=== PATIENT | female | born 1995 | race Caucasian/White ===

== ENCOUNTER 2016-10-26 21:35 | Emergency (ER) | payer MEDICAID ==
[~2016-10-26] VITALS: Ht 157.5 cm; Wt 73.2 kg
[~2016-10-26 21:35] MED LIST: ALPR-475 PO; CITA10TA8 PO; OLAN2.5T3 PO
[2016-10-26] MEDS ORDERED: PRENATAL (21:43)
[2016-10-26 22:24] LABS: BLOOD UREA NITROGEN 14 mg/dL (7-18)
[2016-10-26 22:47] VITALS: BP 113/63
== END 2016-10-26 23:06 | disposition home or self-care (01) ==
LOC: ED 22:53
DX: O23.11 Infections of bladder in pregnancy, first trimester (principal); O26.891 Other specified pregnancy related conditions, first trimester; M54.5 Low back pain; R10.2 Pelvic and perineal pain; Z3A.01 Less than 8 weeks gestation of pregnancy; J45.909 Unspecified asthma, uncomplicated
CPT/HCPCS: 36415; 76801; 80048; 81001; 82040; 84702; 85025; 87086; 99285

== ENCOUNTER 2016-11-12 12:45 | Emergency (ER) | payer MEDICAID ==
[~2016-11-12] VITALS: Ht 162.6 cm; Wt 72.4 kg
[~2016-11-12 12:45] MED LIST changes: +PRENATAL
[2016-11-12] MEDS ORDERED: PREN-3 PO (13:02)
[2016-11-12 13:51] VITALS: BP 120/74
== END 2016-11-12 13:56 | disposition home or self-care (01) ==
LOC: ED 13:28
DX: J20.8 Acute bronchitis due to other specified organisms (principal); H65.03 Acute serous otitis media, bilateral; R11.2 Nausea with vomiting, unspecified; B37.3 Candidiasis of vulva and vagina; J01.00 Acute maxillary sinusitis, unspecified; J45.909 Unspecified asthma, uncomplicated
CPT/HCPCS: 99283

== ENCOUNTER 2016-11-16 17:04 | Emergency (ER) | payer MEDICAID ==
[~2016-11-16] VITALS: Ht 162.6 cm; Wt 73.0 kg
[~2016-11-16 17:04] MED LIST changes: +PREN-3 PO
[2016-11-16 18:29] LABS: HCG UR OBC PASS
[2016-11-16 19:41] VITALS: BP 105/62
== END 2016-11-16 19:58 | disposition home or self-care (01) ==
LOC: ED 19:35
DX: O23.591 Infection of other part of genital tract in pregnancy, first trimester (principal); B96.89 Other specified bacterial agents as the cause of diseases classified elsewhere; N76.0 Acute vaginitis; Z3A.09 9 weeks gestation of pregnancy; F12.10 Cannabis abuse, uncomplicated
CPT/HCPCS: 81001; 81025; 87086; 87210; 87491; 87591; 87808; 99284

== ENCOUNTER 2016-11-27 12:48 | Emergency (ER) | payer MEDICAID ==
[~2016-11-27] VITALS: Ht 162.6 cm; Wt 72.9 kg
[2016-11-27 12:51] VITALS: BP 127/81
== END 2016-11-27 13:43 | disposition home or self-care (01) ==
LOC: ED 13:30
DX: K08.89 Other specified disorders of teeth and supporting structures (principal)
CPT/HCPCS: 99283

== ENCOUNTER 2017-04-17 14:52 | Outpatient (CLI) | payer MEDICAID ==
[~2017-04-17] VITALS: Ht 162.6 cm; Wt 78.2 kg
[2017-04-17 15:14] LABS: DAU SCREEN DISCLAIMER
[2017-04-17 17:13] VITALS: BP 136/81
== END 2017-04-17 17:05 | disposition home or self-care (01) ==
LOC: LDOP 14:52
PROVIDERS: ATTEND Obstetrics & Gynecology
DX: O26.893 Other specified pregnancy related conditions, third trimester (principal); O21.9 Vomiting of pregnancy, unspecified; O99.343 Other mental disorders complicating pregnancy, third trimester; O99.513 Diseases of the respiratory system complicating pregnancy, third trimester; F32.9 Major depressive disorder, single episode, unspecified; J45.909 Unspecified asthma, uncomplicated; Z3A.30 30 weeks gestation of pregnancy
CPT/HCPCS: 59025; 80307; 81001; 87086; 99211; G0463; G0479

== ENCOUNTER 2017-05-02 13:50 | Outpatient (CLI) | payer MEDICAID ==
[2017-05-02 14:21] VITALS: BP 107/58
== END 2017-05-02 15:28 | disposition home or self-care (01) ==
LOC: LDOP 13:50
PROVIDERS: ATTEND Obstetrics & Gynecology
DX: O26.893 Other specified pregnancy related conditions, third trimester (principal); O99.513 Diseases of the respiratory system complicating pregnancy, third trimester; O99.343 Other mental disorders complicating pregnancy, third trimester; J45.909 Unspecified asthma, uncomplicated; F32.9 Major depressive disorder, single episode, unspecified; R07.81 Pleurodynia; R10.12 Left upper quadrant pain; Z3A.30 30 weeks gestation of pregnancy
CPT/HCPCS: 59025; 99211; G0463

== ENCOUNTER 2017-06-15 01:58 | Outpatient (CLI) | payer MEDICAID ==
[~2017-06-15] VITALS: Ht 162.6 cm; Wt 86.0 kg
[2017-06-15 02:16] LABS: DAU SCREEN DISCLAIMER
[2017-06-15] MEDS ORDERED: ACETAMINOPHEN 325 MG TABLET ONE (02:51)
[2017-06-15 03:12] LABS: HEMATOCRIT 34.6 % (34.6-47.8); HEMOGLOBIN 11.8 g/dL (11.7-16.4); WHITE BLOOD COUNT 9.5 x10^3/uL (3.4-10)
[2017-06-15] MEDS ORDERED: OMEP20TA62 PO (17:28)
[2017-06-15] MEDS ORDERED: FERR324T8 PO (17:29)
== END 2017-06-15 04:15 | disposition home or self-care (01) ==
LOC: LDOP 01:58
PROVIDERS: ATTEND Obstetrics & Gynecology
DX: O26.893 Other specified pregnancy related conditions, third trimester (principal); O99.513 Diseases of the respiratory system complicating pregnancy, third trimester; O99.343 Other mental disorders complicating pregnancy, third trimester; F32.9 Major depressive disorder, single episode, unspecified; J45.909 Unspecified asthma, uncomplicated; M54.9 Dorsalgia, unspecified; R50.9 Fever, unspecified; R05 Cough; Z3A.39 39 weeks gestation of pregnancy
CPT/HCPCS: 36415; 59025; 80307; 81003; 85025; 87086; 99211; G0463; G0479

== ENCOUNTER 2017-06-15 16:48 | Outpatient (CLI) | payer MEDICAID ==
[~2017-06-15] VITALS: Ht 162.6 cm; Wt 86.4 kg
[2017-06-15 16:45] VITALS: BP 112/66
[2017-06-15] MEDS ORDERED: OMEP20TA62 PO (17:28)
[2017-06-15] MEDS ORDERED: FERR324T8 PO (17:29)
== END 2017-06-15 17:40 | disposition home or self-care (01) ==
LOC: LDOP 16:48
PROVIDERS: ATTEND Obstetrics & Gynecology
DX: O26.893 Other specified pregnancy related conditions, third trimester (principal); O99.343 Other mental disorders complicating pregnancy, third trimester; O99.513 Diseases of the respiratory system complicating pregnancy, third trimester; F32.9 Major depressive disorder, single episode, unspecified; J45.909 Unspecified asthma, uncomplicated; R10.9 Unspecified abdominal pain; M54.9 Dorsalgia, unspecified; Z3A.39 39 weeks gestation of pregnancy
CPT/HCPCS: 59025; 99211; G0463

== ENCOUNTER 2017-06-19 23:25 | Inpatient (IN) | payer MEDICAID ==
[~2017-06-19] VITALS: Ht 162.6 cm; Wt 86.4 kg
[~2017-06-19 23:25] MED LIST changes: +FERR324T8 PO; +OMEP20TA62 PO
[2017-06-19 23:27] VITALS: BP 123/78
[2017-06-20 00:21] LABS: DAU SCREEN DISCLAIMER
[2017-06-20] MEDS: D5%-LACTATED RINGERS 1,000 ML IV SCH ×2 (00:44→08:44)
[2017-06-20] MEDS ORDERED: OXYTOCIN 30U/ 0.9% NaCL 500ML 500 ML IV ONE (00:44)
[2017-06-20] MEDS ORDERED: NEWBORN KIT ONE (00:58)
[2017-06-20] MEDS ORDERED: OXYTOCIN 30U/ 0.9% NaCL 500ML 500 ML ONE ×3 (00:58→13:04)
[2017-06-20] MEDS ORDERED: FENTANYL PF 100 MCG/2ML ONE ×3 (00:59→01:45)
[2017-06-20] MEDS ORDERED: FENTANYL PF 100 MCG/2ML IVPush PRN (01:00)
[2017-06-20] MEDS ORDERED: FENTANYL PF 100 MCG/2ML IV PRN (01:00)
[2017-06-20] MEDS ORDERED: TERBUTALINE 1 MG/ML, 1ML IVPush PRN (01:00)
[2017-06-20] MEDS: LACTATED RINGERS 1,000 ML IV SCH ×4 (01:00→10:04)
[2017-06-20] MEDS ORDERED: CALCIUM CARBONATE 500 MG TAB.CHEW PO PRN ×2 (01:00→12:30)
[2017-06-20 01:22] LABS: HEMATOCRIT 35.6 % (34.6-47.8); HEMOGLOBIN 12.1 g/dL (11.7-16.4); WHITE BLOOD COUNT 11.2 x10^3/uL (3.4-10)
[2017-06-20] MEDS ORDERED: BUPIVACAINE 0.25% ONE (01:37)
[2017-06-20] MEDS ORDERED: FENTANYL/BUPIV./NS/PF 250 ML EPIDCONT ONE ×2 (01:37→01:45)
[2017-06-20] MEDS ORDERED: LIDOCAINE 1%, 20ML ONE ×2 (01:45→04:06)
[2017-06-20] MEDS ORDERED: FENTANYL/BUPIV./NS/PF 250 ML EPIDCONT SCH (02:04)
[2017-06-20] MEDS ORDERED: OXYTOCIN 30U/ 0.9% NaCL 500ML 500 ML IV PRN (02:15)
[2017-06-20] MEDS ORDERED: LACTATED RINGERS 1,000 ML IVBOLUS PRN (02:30)
[2017-06-20] MEDS ORDERED: ONDANSETRON 2MG/ML, 2ML ONE ×2 (02:38→08:01)
[2017-06-20] MEDS: ONDANSETRON 2MG/ML, 2ML IVPush PRN ×2 (02:41→08:03)
[2017-06-20] MEDS ORDERED: MISOPROSTOL 200 MCG TABLET ONE (04:06)
[2017-06-20] MEDS: OXYTOCIN 30U/ 0.9% NaCL 500ML 500 ML IV SCH ×5 (12:13→22:13)
[2017-06-20] MEDS ORDERED: ONDANSETRON 2MG/ML, 2ML IV PRN (12:30)
[2017-06-20] MEDS ORDERED: MISOPROSTOL 200 MCG TABLET PR PRN (12:30)
[2017-06-20] MEDS ORDERED: BISACODYL 10 MG SUPP PR PRN (12:30)
[2017-06-20] MEDS ORDERED: METHYLERGONOVINE 0.2 MG/ML IM PRN (12:30)
[2017-06-20] MEDS ORDERED: ACETAMINOPHEN 325 MG TABLET PO PRN ×2 (12:30)
[2017-06-20] MEDS ORDERED: MAGNESIUM HYDROXIDE 8%, 30ML UDC PO PRN (12:30)
[2017-06-20] MEDS ORDERED: OXYcodone/APAP 5/325MG TABLET ONE (13:04)
[2017-06-20] MEDS ORDERED: IBUPROFEN 600 MG TABLET ONE (13:04)
[2017-06-20] MEDS: HYDROcodone/APAP 5/325 TABLET PO PRN ×2 (13:14→17:30)
[2017-06-20] MEDS: IBUPROFEN 600 MG TABLET PO PRN ×2 (13:14→21:18)
[2017-06-20] MEDS ORDERED: HYDROcodone/APAP 5/325 TABLET ONE (13:14)
[2017-06-20 15:15] VITALS: BP 111/68
[2017-06-20 21:14] LABS: HEMATOCRIT 32.6 % (34.6-47.8); HEMOGLOBIN 11.1 g/dL (11.7-16.4); WHITE BLOOD COUNT 15.7 x10^3/uL (3.4-10)
[2017-06-20 21:50] VITALS: BP 109/73
[2017-06-20] MEDS: GUAIFENESIN/DM 200-20MG, 10ML UDC PO PRN (23:16)
[2017-06-21 01:00] VITALS: BP 102/62
[2017-06-21] MEDS: HYDROcodone/APAP 5/325 TABLET PO PRN ×5 (01:12→22:44)
[2017-06-21] MEDS: IBUPROFEN 600 MG TABLET PO PRN ×3 (05:14→17:54)
[2017-06-21 05:20] VITALS: BP 105/63
[2017-06-21] MEDS: DOCUSATE 100 MG CAPSULE PO PRN (07:33)
[2017-06-21 07:58] VITALS: BP 122/78
[2017-06-21] MEDS: OXYTOCIN 30U/ 0.9% NaCL 500ML 500 ML IV SCH (08:13)
[2017-06-21] MEDS: PRENATAL VIT/IRON/FA 1 EACH TABLET PO SCH (09:00)
[2017-06-21] MEDS: GUAIFENESIN/DM 200-20MG, 10ML UDC PO PRN ×2 (12:34→19:59)
[2017-06-21 19:39] VITALS: BP 113/79
[2017-06-22] MEDS: IBUPROFEN 600 MG TABLET PO PRN ×2 (00:13→05:44)
[2017-06-22 07:30] VITALS: BP 116/78
[2017-06-22] MEDS: PRENATAL VIT/IRON/FA 1 EACH TABLET PO SCH (08:05)
[2017-06-22] MEDS: HYDROcodone/APAP 5/325 TABLET PO PRN (08:06)
[2017-06-22] MEDS: DOCUSATE 100 MG CAPSULE PO PRN (08:06)
[2017-06-22] MEDS ORDERED: IBUP-1223 PO (10:52)
[2017-06-22] MEDS ORDERED: HYDR-3240 PO (10:54)
== END 2017-06-22 11:30 | disposition home or self-care (01) | DRG 775 ==
LOC: LDOP 23:25 → UNDOADMIN 06-20 00:47 → LDIP 06-20 00:47 → 2NW 06-20 15:37
PROVIDERS: ADMIT Obstetrics & Gynecology; ATTEND Obstetrics & Gynecology
PROC: 10E0XZZ Delivery of Products of Conception, External Approach (ICD-10-PCS; principal; 2017-06-20)
PROC: 0HQ9XZZ Repair Perineum Skin, External Approach (ICD-10-PCS; 2017-06-20)
PROC: 3E0R3BZ Introduction of Anesthetic Agent into Spinal Canal, Percutaneous Approach (ICD-10-PCS; 2017-06-20)
PROC: 00HU33Z Insertion of Infusion Device into Spinal Canal, Percutaneous Approach (ICD-10-PCS; 2017-06-20)
DX: O70.0 First degree perineal laceration during delivery (principal); O99.344 Other mental disorders complicating childbirth; F32.9 Major depressive disorder, single episode, unspecified; O99.52 Diseases of the respiratory system complicating childbirth; J45.909 Unspecified asthma, uncomplicated; Z37.0 Single live birth; Z3A.39 39 weeks gestation of pregnancy
CPT/HCPCS: 36415; 80307; 85025; 86850; 86900; J2405; J3010; J3490; G0479; J2590; J7120

== ENCOUNTER 2017-08-17 05:00 | Emergency (ER) | payer MEDICAID ==
[~2017-08-17] VITALS: Ht 162.6 cm; Wt 79.5 kg
[~2017-08-17 05:00] MED LIST changes: +HYDR-3240 PO; +IBUP-1223 PO
[2017-08-17 05:03] VITALS: BP 124/84
[2017-08-17] MEDS ORDERED: IBUPROFEN 200 MG TABLET ONE (05:42)
[2017-08-17] MEDS ORDERED: DEXAMETHASONE 4 MG/ML, 1ML PO ONE (06:30)
[2017-08-17] MEDS ORDERED: DEXAMETHASONE 4 MG TABLET ONE (06:39)
== END 2017-08-17 06:57 | disposition home or self-care (01) ==
LOC: ED 05:43
DX: J02.8 Acute pharyngitis due to other specified organisms (principal); J45.909 Unspecified asthma, uncomplicated
CPT/HCPCS: 87081; 87880; 99284; J1100; 87147

== ENCOUNTER 2017-09-08 09:00 | Emergency (ER) | payer MEDICAID ==
[~2017-09-08] VITALS: Ht 162.6 cm; Wt 80.4 kg
[2017-09-08 09:21] VITALS: BP 112/72
== END 2017-09-08 11:22 | disposition home or self-care (01) ==
LOC: ED 09:44
DX: S93.491A Sprain of other ligament of right ankle, initial encounter (principal); S93.602A Unspecified sprain of left foot, initial encounter; J45.909 Unspecified asthma, uncomplicated; X58.XXXA Exposure to other specified factors, initial encounter; Y93.89 Activity, other specified; Y92.89 Other specified places as the place of occurrence of the external cause; Y99.8 Other external cause status
CPT/HCPCS: 29515; 99284

== ENCOUNTER 2017-09-22 12:27 | Emergency (ER) | payer MEDICAID ==
[~2017-09-22] VITALS: Ht 162.6 cm; Wt 83.6 kg
[2017-09-22 12:31] VITALS: BP 116/78
[2017-09-22] MEDS ORDERED: KETOROLAC 30 MG/1 ML IM ONE (13:00)
== END 2017-09-22 13:54 | disposition home or self-care (01) ==
LOC: ED 13:48
DX: S92.345A Nondisplaced fracture of fourth metatarsal bone, left foot, initial encounter for closed fracture (principal); W19.XXXA Unspecified fall, initial encounter; Y93.89 Activity, other specified; Y92.89 Other specified places as the place of occurrence of the external cause; Y99.8 Other external cause status
CPT/HCPCS: 29515; 99284

== ENCOUNTER 2018-01-20 20:42 | Emergency (ER) | payer MEDICAID ==
[~2018-01-20] VITALS: Ht 162.6 cm; Wt 84.0 kg
[2018-01-20] MEDS ORDERED: ONDANSETRON ODT 4 MG PO ONE (21:00)
[2018-01-20 21:14] LABS: MICROSCOPIC AUTO
[2018-01-20] MEDS ORDERED: ONDANSETRON ODT 4 MG ONE (21:15)
[2018-01-20 21:16] LABS: CULTURE INDICATED? YES
[2018-01-20 21:20] LABS: BASOPHILS % (AUTO) 0 % (0-1); EOSINOPHILS # (AUTO) 0.01 x10^3/uL (0-0.4); EOSINOPHILS % (AUTO) 0 % (1-7); LYMPHOCYTES # (AUTO) 1.08 x10^3/uL (1-3.4); LYMPHOCYTES % (AUTO) 9 % (22-44); MD NO; MEAN CORPUSCULAR HEMOGLOBIN 31.8 pg (27.0-34.8); MEAN CORPUSCULAR HGB CONC 34.3 g/dL (32.4-35.8); MEAN CORPUSCULAR VOLUME 92.6 fL (80-100); MEAN PLATELET VOLUME 7.9 fL (7.4-10.4); MONOCYTES # (AUTO) 0.35 x10^3/uL (0.2-0.8); MONOCYTES % (AUTO) 3 % (2-9); NEUTROPHILS # (AUTO) 11.15 x10^3/uL (1.8-6.8); NEUTROPHILS % (AUTO) 89 % (42-75); PLATELET COUNT 288 x10^3/uL (130-400); RED BLOOD COUNT 4.77 x10^6/uL (3.82-5.3); RED CELL DISTRIBUTION WIDTH 14.3 % (9.6-15.2)
[2018-01-20 21:24] LABS: ALBUMIN 3.4 g/dL (3.4-5.0); ANION GAP 6 mmol/L (5-15); CHLORIDE 113 mmol/L (98-107)
[2018-01-20 21:29] LABS: ALANINE AMINOTRANSFERASE 24 U/L (12-78); ALKALINE PHOSPHATASE 72 U/L (45-117); BILIRUBIN,TOTAL 0.8 mg/dL (0.2-1.0); CREATININE 0.78 mg/dL (0.55-1.02); TOTAL PROTEIN 6.4 g/dL (6.4-8.2)
[2018-01-20] MEDS ORDERED: SODIUM CHLORIDE 0.9% 1,000ML IVBOLUS ONE ×2 (21:30→23:30)
[2018-01-20] MEDS ORDERED: MORPHINE SULFATE 4 MG/ML, 1ML IVPush PRN (21:30)
[2018-01-20] MEDS ORDERED: ONDANSETRON 2MG/ML, 2ML IVPush ONE (21:30)
[2018-01-20] MEDS ORDERED: MORPHINE SULFATE 4 MG/ML, 1ML ONE (21:57)
[2018-01-20] MEDS ORDERED: OMNIPAQUE 350 MG/ML, 100ML BOTTLE ONE (22:44)
[2018-01-20] MEDS ORDERED: KETOROLAC 30 MG/1 ML ONE (23:11)
[2018-01-20] MEDS ORDERED: KETOROLAC 30 MG/1 ML IVPush ONE (23:30)
[2018-01-20] MEDS ORDERED: CEFDINIR 300 MG CAPSULE PO ONE (23:30)
[2018-01-20] MEDS ORDERED: CEFDINIR 300 MG CAPSULE ONE (23:47)
[2018-01-20 23:57] VITALS: BP 106/60
== END 2018-01-21 00:20 | disposition home or self-care (01) ==
LOC: ED 23:59
DX: N23 Unspecified renal colic (principal); N13.6 Pyonephrosis; F31.9 Bipolar disorder, unspecified; J45.909 Unspecified asthma, uncomplicated; R11.2 Nausea with vomiting, unspecified; R19.7 Diarrhea, unspecified
CPT/HCPCS: 36415; 74177; 76830; 76857; 80053; 81001; 84703; 85025; 87086; 96361; 96374; 96375; 99285; J1885; J7030; Q0162; Q9967

== ENCOUNTER 2018-02-25 20:26 | Emergency (ER) | payer MEDICAID ==
[~2018-02-25] VITALS: Ht 162.6 cm; Wt 85.5 kg
[2018-02-25] MEDS ORDERED: SODIUM CHLORIDE FLUSH 10ML SYR IVF ONE ×2 (21:00→21:30)
[2018-02-25 21:22] LABS: BASOPHILS # (AUTO) 0.05 x10^3/uL (0-0.1); BASOPHILS % (AUTO) 0 % (0-1); EOSINOPHILS # (AUTO) 0.01 x10^3/uL (0-0.4); EOSINOPHILS % (AUTO) 0 % (1-7); LYMPHOCYTES # (AUTO) 0.87 x10^3/uL (1-3.4); LYMPHOCYTES % (AUTO) 6 % (22-44); MD NO; MEAN CORPUSCULAR HEMOGLOBIN 31.4 pg (27.0-34.8); MEAN CORPUSCULAR HGB CONC 33.7 g/dL (32.4-35.8); MEAN CORPUSCULAR VOLUME 93.1 fL (80-100); MEAN PLATELET VOLUME 7.8 fL (7.4-10.4); MONOCYTES # (AUTO) 0.31 x10^3/uL (0.2-0.8); MONOCYTES % (AUTO) 2 % (2-9); NEUTROPHILS # (AUTO) 13.89 x10^3/uL (1.8-6.8); NEUTROPHILS % (AUTO) 92 % (42-75); PLATELET COUNT 342 x10^3/uL (130-400); RED CELL DISTRIBUTION WIDTH 14.3 % (9.6-15.2)
[2018-02-25] MEDS ORDERED: MORPHINE SULFATE 4 MG/ML, 1ML IVPush PRN (21:30)
[2018-02-25] MEDS ORDERED: PROMETHAZINE 25 MG/ML, 1ML IM ONE (21:30)
[2018-02-25] MEDS ORDERED: KETOROLAC 30 MG/1 ML IVPush ONE (21:30)
[2018-02-25] MEDS ORDERED: SODIUM CHLORIDE 0.9% 1,000ML IVBOLUS ONE (21:30)
[2018-02-25] MEDS ORDERED: ONDANSETRON ODT 4 MG PO ONE (21:30)
[2018-02-25 21:31] LABS: ALANINE AMINOTRANSFERASE 26 U/L (12-78); ALBUMIN 3.4 g/dL (3.4-5.0); ANION GAP 9 mmol/L (5-15); CALCIUM 8.1 mg/dL (8.5-10.1); CHLORIDE 111 mmol/L (98-107); CREATININE 0.74 mg/dL (0.55-1.02)
[2018-02-25] MEDS ORDERED: KETOROLAC 30 MG/1 ML ONE (21:32)
[2018-02-25] MEDS ORDERED: MORPHINE SULFATE 4 MG/ML, 1ML ONE (21:32)
[2018-02-25] MEDS ORDERED: ONDANSETRON ODT 4 MG ONE (21:32)
[2018-02-25] MEDS ORDERED: PROMETHAZINE 25 MG/ML, 1ML ONE (21:32)
[2018-02-25 21:36] LABS: ALKALINE PHOSPHATASE 76 U/L (45-117); BILIRUBIN,TOTAL 0.9 mg/dL (0.2-1.0); TOTAL PROTEIN 6.6 g/dL (6.4-8.2)
[2018-02-25 21:59] LABS: MICROSCOPIC INDICATED
[2018-02-25 22:00] LABS: CULTURE INDICATED? YES
[2018-02-25 22:51] VITALS: BP 116/71
== END 2018-02-25 23:59 | disposition home or self-care (01) ==
LOC: ED 21:11
DX: O26.891 Other specified pregnancy related conditions, first trimester (principal); R10.11 Right upper quadrant pain; O21.9 Vomiting of pregnancy, unspecified; O23.10 Infections of bladder in pregnancy, unspecified trimester; F31.9 Bipolar disorder, unspecified; O99.511 Diseases of the respiratory system complicating pregnancy, first trimester; J45.909 Unspecified asthma, uncomplicated; R19.7 Diarrhea, unspecified; Z3A.13 13 weeks gestation of pregnancy
CPT/HCPCS: 36415; 76801; 80053; 81001; 83690; 84702; 84703; 85025; 86901; 87086; 96361; 96372; 96374; 96375; 99285; J1885; J2550; J7030; Q0162

== ENCOUNTER 2018-07-09 16:50 | Outpatient (CLI) | payer MEDICAID ==
[~2018-07-09] VITALS: Ht 162.6 cm; Wt 90.9 kg
[2018-07-09 17:23] LABS: MICROSCOPIC NOT IND
[2018-07-09] MEDS ORDERED: ONDANSETRON 2MG/ML, 2ML ONE (17:30)
[2018-07-09 17:42] VITALS: BP 109/56
[2018-07-09 17:58] LABS: BASOPHILS # (AUTO) 0.02 x10^3/uL (0-0.1); BASOPHILS % (AUTO) 0 % (0-1); EOSINOPHILS # (AUTO) 0.17 x10^3/uL (0-0.4); EOSINOPHILS % (AUTO) 1 % (1-7); LYMPHOCYTES # (AUTO) 0.92 x10^3/uL (1-3.4); LYMPHOCYTES % (AUTO) 7 % (22-44); MD NO; MEAN CORPUSCULAR HEMOGLOBIN 31.9 pg (27.0-34.8); MEAN CORPUSCULAR HGB CONC 34.3 g/dL (32.4-35.8); MEAN CORPUSCULAR VOLUME 92.9 fL (80-100); MEAN PLATELET VOLUME 8.3 fL (7.4-10.4); MONOCYTES # (AUTO) 0.38 x10^3/uL (0.2-0.8); MONOCYTES % (AUTO) 3 % (2-9); NEUTROPHILS # (AUTO) 12.13 x10^3/uL (1.8-6.8); NEUTROPHILS % (AUTO) 89 % (42-75); PLATELET COUNT 281 x10^3/uL (130-400); RED BLOOD COUNT 4.17 x10^6/uL (3.82-5.3); RED CELL DISTRIBUTION WIDTH 14.4 % (9.6-15.2)
[2018-07-09] MEDS ORDERED: ONDANSETRON 2MG/ML, 2ML IVPush ONE (18:00)
[2018-07-09] MEDS ORDERED: D5%-LACTATED RINGERS 1,000 ML IV SCH (18:00)
[2018-07-09] MEDS ORDERED: LACTATED RINGERS 1,000 ML IVBOLUS ONE (18:00)
[2018-07-09 18:08] LABS: ALANINE AMINOTRANSFERASE 17 U/L (12-78); CALCIUM 8.7 mg/dL (8.5-10.1); CREATININE 0.54 mg/dL (0.55-1.02)
[2018-07-09 18:10] LABS: ALKALINE PHOSPHATASE 80 U/L (45-117); BILIRUBIN,TOTAL 0.6 mg/dL (0.2-1.0); TOTAL PROTEIN 7.1 g/dL (6.4-8.2)
[2018-07-09 18:36] LABS: AMPHETAMINE SCREEN, URINE Negative (Negative); BARBITURATE SCREEN, URINE Negative (Negative); BENZODIAZEPINE SCREEN, URINE Negative (Negative); CANNABINOID SCREEN, URINE Positive (Negative); COCAINE SCREEN, URINE Negative (Negative); METHADONE SCREEN, URINE Negative (Negative); OPIATE SCREEN, URINE Negative (Negative)
[2018-07-09 18:51] LABS: ANION GAP 11 mmol/L (5-15); CHLORIDE 107 mmol/L (98-107)
== END 2018-07-09 20:30 | disposition home or self-care (01) ==
LOC: LDOP 16:50
PROVIDERS: ATTEND Obstetrics & Gynecology
DX: O99.612 Diseases of the digestive system complicating pregnancy, second trimester (principal); K52.9 Noninfective gastroenteritis and colitis, unspecified; O98.519 Other viral diseases complicating pregnancy, unspecified trimester; J11.1 Influenza due to unidentified influenza virus with other respiratory manifestations; O99.322 Drug use complicating pregnancy, second trimester; F12.90 Cannabis use, unspecified, uncomplicated; O99.512 Diseases of the respiratory system complicating pregnancy, second trimester; J45.909 Unspecified asthma, uncomplicated; O99.342 Other mental disorders complicating pregnancy, second trimester; F31.9 Bipolar disorder, unspecified; Z87.891 Personal history of nicotine dependence; Z79.899 Other long term (current) drug therapy; Z87.442 Personal history of urinary calculi; Z87.440 Personal history of urinary (tract) infections; Z3A.24 24 weeks gestation of pregnancy
CPT/HCPCS: 36415; 59025; 80053; 80307; 81003; 85025; 96360; 96361; 99201; J2405; J7120; J7121; 87086; G0463

== ENCOUNTER 2018-07-27 10:23 | Outpatient (CLI) | payer MEDICAID ==
[~2018-07-27] VITALS: Ht 162.6 cm; Wt 90.9 kg
[2018-07-27 10:43] VITALS: BP 105/66
[2018-07-27 12:26] LABS: AMPHETAMINE SCREEN, URINE Negative (Negative); BARBITURATE SCREEN, URINE Negative (Negative); BENZODIAZEPINE SCREEN, URINE Negative (Negative); CANNABINOID SCREEN, URINE Positive (Negative); COCAINE SCREEN, URINE Negative (Negative); METHADONE SCREEN, URINE Negative (Negative); OPIATE SCREEN, URINE Negative (Negative)
== END 2018-07-27 14:30 | disposition home or self-care (01) ==
LOC: LDOP 10:23
PROVIDERS: ATTEND Obstetrics & Gynecology
DX: O32.1XX0 Maternal care for breech presentation, not applicable or unspecified (principal); Z3A.26 26 weeks gestation of pregnancy
CPT/HCPCS: 59025; 76819; 80307; 99211; G0463

== ENCOUNTER 2018-09-24 13:38 | Outpatient (CLI) | payer MEDICAID ==
[2018-09-24 14:17] LABS: AMPHETAMINE SCREEN, URINE Negative (Negative); BARBITURATE SCREEN, URINE Negative (Negative); BENZODIAZEPINE SCREEN, URINE Negative (Negative); CANNABINOID SCREEN, URINE Negative (Negative); COCAINE SCREEN, URINE Negative (Negative); METHADONE SCREEN, URINE Negative (Negative); OPIATE SCREEN, URINE Negative (Negative)
[2018-09-24 14:20] LABS: MICROSCOPIC INDICATED
== END 2018-09-24 14:42 | disposition home or self-care (01) ==
LOC: LDOP 13:38
PROVIDERS: ATTEND Obstetrics & Gynecology
DX: O26.893 Other specified pregnancy related conditions, third trimester (principal); Z3A.34 34 weeks gestation of pregnancy; R42 Dizziness and giddiness; R11.0 Nausea
CPT/HCPCS: 59025; 80307; 81001; 87086; 99211; G0463

== ENCOUNTER 2018-10-27 05:56 | Inpatient (IN) | payer MEDICAID, OTHER ==
[~2018-10-27] VITALS: Ht 162.6 cm; Wt 91.8 kg
[2018-10-27] MEDS ORDERED: OXYTOCIN 30U/ 0.9% NaCL 500ML 500 ML IV PRN (05:57)
[2018-10-27] MEDS ORDERED: OXYTOCIN 30U/ 0.9% NaCL 500ML 500 ML IV ONE (05:57)
[2018-10-27] MEDS ORDERED: FENTANYL PF 100 MCG/2ML IVPush PRN (06:00)
[2018-10-27] MEDS ORDERED: METOCLOPRAMIDE 5 MG/ML, 2ML IVPush PRN (06:00)
[2018-10-27] MEDS ORDERED: FENTANYL PF 100 MCG/2ML IV PRN (06:00)
[2018-10-27] MEDS ORDERED: SODIUM CITRATE/CITRIC ACID 15 ML UDC PO PRN (06:00)
[2018-10-27 06:32] LABS: BASOPHILS # (AUTO) 0.05 x10^3/uL (0-0.1); BASOPHILS % (AUTO) 1 % (0-1); EOSINOPHILS # (AUTO) 0.06 x10^3/uL (0-0.4); EOSINOPHILS % (AUTO) 1 % (1-7); LYMPHOCYTES # (AUTO) 2.57 x10^3/uL (1-3.4); LYMPHOCYTES % (AUTO) 22 % (22-44); MD NO; MEAN CORPUSCULAR HEMOGLOBIN 30.1 pg (27.0-34.8); MEAN CORPUSCULAR HGB CONC 32.8 g/dL (32.4-35.8); MEAN CORPUSCULAR VOLUME 91.8 fL (80-100); MEAN PLATELET VOLUME 7.6 fL (7.4-10.4); MONOCYTES # (AUTO) 0.65 x10^3/uL (0.2-0.8); MONOCYTES % (AUTO) 6 % (2-9); NEUTROPHILS % (AUTO) 71 % (42-75); PLATELET COUNT 325 x10^3/uL (130-400); RED BLOOD COUNT 3.89 x10^6/uL (3.82-5.3); RED CELL DISTRIBUTION WIDTH 14.9 % (9.6-15.2)
[2018-10-27] MEDS ORDERED: NEWBORN KIT ONE (06:34)
[2018-10-27] MEDS ORDERED: OXYTOCIN 30U/ 0.9% NaCL 500ML 500 ML ONE ×2 (06:34→17:39)
[2018-10-27 06:38] VITALS: BP 120/68
[2018-10-27 06:41] LABS: AMPHETAMINE SCREEN, URINE Negative (Negative); BARBITURATE SCREEN, URINE Negative (Negative); BENZODIAZEPINE SCREEN, URINE Negative (Negative); CANNABINOID SCREEN, URINE Negative (Negative); COCAINE SCREEN, URINE Negative (Negative); METHADONE SCREEN, URINE Negative (Negative); OPIATE SCREEN, URINE Negative (Negative)
[2018-10-27] MEDS ORDERED: FENTANYL/BUPIV./NS/PF 250 ML EPIDCONT SCH (09:04)
[2018-10-27] MEDS ORDERED: FENTANYL PF 500 MCG, BUPIVACAINE/PF 0.5%, 30ML 62.5 ML in SODIUM CHLORIDE 0.9% 177.5 ML EPIDCONT SCH (09:30)
[2018-10-27] MEDS ORDERED: LACTATED RINGERS 1,000 ML IVBOLUS PRN (09:30)
[2018-10-27] MEDS ORDERED: EPHEDRINE 50 MG/ML, 1ML IVPush PRN (09:30)
[2018-10-27] MEDS ORDERED: FENTANYL PF 100 MCG/2ML ONE ×2 (13:54→13:56)
[2018-10-27] MEDS ORDERED: BUPIVACAINE 0.25% ONE (13:56)
[2018-10-27] MEDS ORDERED: LIDOCAINE/PF 1.5%-EPI 1:200K, 30ML ONE (14:00)
[2018-10-27] MEDS: LACTATED RINGERS 1,000 ML IV SCH ×2 (14:36→17:04)
[2018-10-27] MEDS ORDERED: DIPH,PERTUSS(ACELL),TET VAC/PF NC IM-VACC PRN (17:00)
[2018-10-27] MEDS ORDERED: METHYLERGONOVINE 0.2 MG/ML IM PRN (17:00)
[2018-10-27] MEDS ORDERED: MISOPROSTOL 200 MCG TABLET PR PRN (17:00)
[2018-10-27] MEDS ORDERED: CARBOPROST TROMETHAMINE 250 MCG/ML, 1ML IM PRN (17:00)
[2018-10-27] MEDS ORDERED: RHOGAM FROM BLOOD BANK 1 NOTE EA IM/IV ONE (17:00)
[2018-10-27] MEDS ORDERED: OXYcodone/APAP 5/325MG TABLET PO PRN ×2 (17:00)
[2018-10-27] MEDS ORDERED: BISACODYL 10 MG SUPP PR PRN (17:00)
[2018-10-27] MEDS: OXYTOCIN 30U/ 0.9% NaCL 500ML 500 ML IV SCH (17:44)
[2018-10-27] MEDS ORDERED: IBUPROFEN 600 MG TABLET ONE (18:02)
[2018-10-27] MEDS ORDERED: OXYcodone/APAP 5/325MG TABLET ONE (18:02)
[2018-10-27] MEDS: IBUPROFEN 600 MG TABLET PO PRN (18:03)
[2018-10-27 19:55] VITALS: BP 110/71
[2018-10-27] MEDS: DOCUSATE 100 MG CAPSULE PO PRN (21:57)
[2018-10-28 00:30] VITALS: BP 106/71
[2018-10-28] MEDS: IBUPROFEN 600 MG TABLET PO PRN ×3 (00:31→16:10)
[2018-10-28 01:23] LABS: BASOPHILS # (AUTO) 0.03 x10^3/uL (0-0.1); BASOPHILS % (AUTO) 0 % (0-1); EOSINOPHILS # (AUTO) 0.02 x10^3/uL (0-0.4); EOSINOPHILS % (AUTO) 0 % (1-7); LYMPHOCYTES # (AUTO) 2.93 x10^3/uL (1-3.4); LYMPHOCYTES % (AUTO) 23 % (22-44); MD NO; MEAN CORPUSCULAR HEMOGLOBIN 30.8 pg (27.0-34.8); MEAN CORPUSCULAR HGB CONC 33.9 g/dL (32.4-35.8); MEAN CORPUSCULAR VOLUME 91.1 fL (80-100); MEAN PLATELET VOLUME 7.8 fL (7.4-10.4); MONOCYTES # (AUTO) 0.64 x10^3/uL (0.2-0.8); MONOCYTES % (AUTO) 5 % (2-9); NEUTROPHILS # (AUTO) 9.44 x10^3/uL (1.8-6.8); NEUTROPHILS % (AUTO) 72 % (42-75); PLATELET COUNT 279 x10^3/uL (130-400); RED BLOOD COUNT 3.42 x10^6/uL (3.82-5.3); RED CELL DISTRIBUTION WIDTH 15.2 % (9.6-15.2)
[2018-10-28] MEDS: OXYTOCIN 30U/ 0.9% NaCL 500ML 500 ML IV SCH ×2 (02:49→12:49)
[2018-10-28 03:30] VITALS: BP 102/69
[2018-10-28 08:00] VITALS: BP 110/69
[2018-10-28] MEDS: DOCUSATE 100 MG CAPSULE PO PRN (08:16)
[2018-10-28] MEDS ORDERED: PRENATAL VIT/IRON/FA 1 EACH TABLET PO SCH (09:00)
[2018-10-28 12:00] VITALS: BP 106/62
[2018-10-28 16:00] VITALS: BP 102/69
== END 2018-10-28 17:20 | disposition home or self-care (01) | DRG 806 ==
LOC: LDIP 05:56 → 2NW 19:36
PROVIDERS: ADMIT Obstetrics & Gynecology; ATTEND Obstetrics & Gynecology
PROC: 10E0XZZ Delivery of Products of Conception, External Approach (ICD-10-PCS; principal; 2018-10-27)
PROC: 10H07YZ Insertion of Other Device into Products of Conception, Via Natural or Artificial Opening (ICD-10-PCS; 2018-10-27)
PROC: 3E0R3BZ Introduction of Anesthetic Agent into Spinal Canal, Percutaneous Approach (ICD-10-PCS; 2018-10-27)
PROC: 00HU33Z Insertion of Infusion Device into Spinal Canal, Percutaneous Approach (ICD-10-PCS; 2018-10-27)
DX: O69.1XX0 Labor and delivery complicated by cord around neck, with compression, not applicable or unspecified (principal); O99.324 Drug use complicating childbirth; Z37.0 Single live birth; O99.52 Diseases of the respiratory system complicating childbirth; O36.5930 Maternal care for other known or suspected poor fetal growth, third trimester, not applicable or unspecified; J45.909 Unspecified asthma, uncomplicated; F12.90 Cannabis use, unspecified, uncomplicated; Z3A.39 39 weeks gestation of pregnancy; O99.344 Other mental disorders complicating childbirth; F32.9 Major depressive disorder, single episode, unspecified
CPT/HCPCS: 36415; S0020; 80307; 85025; 86850; 86900; G0378; J3010; J3490; J2590; J7050; J7120

== ENCOUNTER 2018-11-01 21:54 | Emergency (ER) | payer MEDICAID ==
[~2018-11-01] VITALS: Ht 162.6 cm; Wt 86.9 kg
[2018-11-01 22:07] VITALS: BP 119/74
--- NOTE | 2018-11-01 23:48 | NUR ---
DC EDUCATION PROVIDED, PT DEMONSTRATES UNDERSTANDING. PT AMBULATED STEADILY TO DC WITH RN
== END 2018-11-01 23:50 | disposition home or self-care (01) ==
LOC: ED 23:37
DX: M79.661 Pain in right lower leg (principal)
CPT/HCPCS: 99284